=== PATIENT | female | born 1960 | race Caucasian/White ===

== ENCOUNTER 2021-11-22 07:05 | Day surgery (SDC) | payer OTHER ==
[~2021-11-22] VITALS: Ht 1823.7 cm; Wt 81.8 kg
[~2021-11-22 07:05] MED LIST: BUSPIRONE HCL10 MG PO; CALCIUM 600 +1 EACH PO; CYCLOBENZAPRINE5 MG PO; GINKGO BILOBA60 M1 PO; GLUCOSAMINE &1 EAC1 PO; MACRODANTIN50 MG PO; MULTIVITAMINS1 EAC7 PO; OMEGA 3 1,0001 EACH PO; OMEPRAZOLE40 MG PO; PLAQUENIL200 MG PO; RITALIN10 MG PO; SERTRALINE HCL50 MG PO; TRIMETHOPRIM100 MG PO; TYLENOL WITH C1 EAC1 PO; VITAMIN B COMP1 EACH PO; VITAMIN B-12100 MCG PO; VITAMIN B-6100 MG PO; VITAMIN C500 M1 PO; VITAMIN E1000 UNI1 PO; ZINC50 MG PO; ZOFRAN8 MG PO
[2021-11-22] MEDS ORDERED: OMEPRAZOLE40 MG PO (07:29)
[2021-11-22] MEDS ORDERED: TRIMETHOBENZAM300 MG (07:31)
--- NOTE | 2021-11-22 12:04 | OR ---
[facility] [address] [place], [place] [address] Signed DATE OF OPERATION: 11/22/2021 SURGEON: Nina Torrez MD PREOPERATIVE DIAGNOSES: 1. Systemic lupus erythematosus. 2. Epigastric abdominal pain. 3. Small to moderate sized hiatal hernia. 4. Gastroesophageal reflux disease. 5. History of mild gastroduodenitis. 6. History of mild distal esophagitis. POSTOPERATIVE DIAGNOSES: 1. Mild diffuse gastritis. 2. Small hiatal hernia (3 cm). 3. GE junction at 32 cm. PROCEDURE: EGD with CLOtest and biopsies of the antrum and GE junction. ESTIMATED BLOOD LOSS: None. INDICATIONS: Kim is a 61-year-old female I have known for many years. 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 She has a long history of systemic lupus erythematosus. She has cut out smoking alcohol and her platelet counts have recovered up to 130,000 to 180,000. She said she changed her diet and lost 40 pounds. She is hoping to lose 20 more pounds. She said that really helped the acid reflux. She is having some epigastric abdominal pain. She is also having pain along the costal margins. She has a long history of small to moderate sized hiatal hernia. I helped her with upper endoscopy at the age of 44 back in 2006. Her CLOtest was negative. At that time, she did well with Versed and fentanyl. She came back in 2014 at the age of 52 for both upper and lower endoscopy. Again, she had the moderate-sized hiatal hernia with a negative CLOtest. She had mild gastroduodenitis. She had mild distal esophagitis. There was no Fry's mucosa. More recently, she has been under a lot of stress at that time, but is doing much better now. Again, she had done well with the Versed and fentanyl. In the office, I gave her a pamphlet on upper endoscopy. We had reviewed the nature of the test. There is risk including, but not limited to gas bloating, crampy Electronically Signed By: NNIA TORREZ MD 11/22/21 1204 PATIENT NAME: KIM FARR OPERATIVE REPORT DATE OF : 64 REPORT #: [id number] PHYSICIAN: NNIA TORREZ MD PCP: ISABEL SUNG PAC REPORT IS CONFIDENTIAL AND NOT TO BE RELEASED WITHOUT AUTHORIZATION [facility] [address] [place], [place] [address] Signed abdominal pain, bleeding, perforation requiring surgery, and missed diagnosis. We went ahead and scheduled her with standard Versed and fentanyl. However, she does have a history of generalized anxiety disorder with ADHD requiring methylphenidate. She also has to take cyclobenzaprine as well as some Tylenol with Codeine. Sure enough today she took a large amount of Versed and fentanyl. In the future, she would be much better served with monitored anesthesia care. She had expressed understanding and wished to proceed. PROCEDURE NOTE: Kim was taken into our endoscopy suite and placed in the supine semi-recumbent position. We gave her a total of 10 mg of Versed and 125 mcg of fentanyl to cover the case. A bite block was utilized. Kim was comfortable proceeding while she was slightly awake. The posterior oropharynx was unremarkable. As soon as we got the scope into the proximal esophagus, we gave her two additional mg of Versed and 25 mcg of fentanyl. That allowed us to pass the scope out into the duodenum. The duodenum and pyloric channel were unremarkable. The stomach again just showed some very mild erythematous changes. We went ahead and took a biopsy of the antrum for CLOtest as well as pathologic review. Upon retroflexion of the scope again we can see a small to moderate sized hiatal hernia. Her GE junction is right at about 32 cm. She was awake enough, it was a little difficult to measure precisely. Very minimal disruption to her Z-line. No Fry's mucosa. No distal esophagitis. We went ahead and took a single biopsy along the edge of the Z-line. We also took a biopsy in the midesophagus as well. She told me it is getting more difficult swallowing hot or cold liquids as she is getting older and with her lupus. The proximal esophagus was unremarkable. After this, the gas was suctioned out and gastroscope removed. Kim tolerated the procedure quite well. In the future, however, she would definitely be much better served with monitored anesthesia care and infusion of propofol. RECOMMENDATIONS: I will see Kim back in my office in 7 to 14 days to review her results. In the future, she really should have monitored anesthesia care with propofol. Nina Torrez MD ALB/MODL /[id number] Electronically Signed By: NINA TORREZ MD 11/22/21 1204 PATIENT NAME: KIM FARR OPERATIVE REPORT DATE OF : 64 REPORT #: [id number] PHYSICIAN: NINA TORREZ MD PCP: ISABEL SUNG PAC REPORT IS CONFIDENTIAL AND NOT TO BE RELEASED WITHOUT AUTHORIZATION [facility] [address] [place], [place] [address] Signed cc: HAYDER Marin MD Copies: NINA TORREZ MD ~ Electronically Signed By: NINA TORREZ MD 11/22/21 1204 PATIENT NAME: KIM FARR OPERATIVE REPORT DATE OF : 64 REPORT #: [id number] PHYSICIAN: NINA TORREZ MD PCP: ISABEL SUNG PAC REPORT IS CONFIDENTIAL AND NOT TO BE RELEASED WITHOUT AUTHORIZATION
--- NOTE | 2021-11-27 13:27 | PATH ---
[facility] [address] [place], [place] [address] Signed SPECIMEN(S): A ANTRUM/PYLORUS BIOPSY SPECIMEN(S): B GE JUNCTION SPECIMEN(S): C MIDDLE ESOPHAGEAL BIOPSY SPECIMEN SOURCE: A. ANTRUM/PYLORUS BIOPSY B. GE JUNCTION C. MIDDLE ESOPHAGEAL BIOPSY CLINICAL HISTORY: History of hiatal hernia; mild gastroduodenitis; mild esophagitis. Post: Mild gastritis FINAL PATHOLOGIC DIAGNOSIS: A. Antrum / pylorus biopsy: - Benign gastric-type mucosa with focal slight chronic inflammation. - Negative for evidence of Helicobacter organisms on routine HE stained sections. B. GE junction: - Benign esophageal epithelium, negative for increased epithelial eosinophils. - Negative for glandular mucosa. C. Middle esophageal biopsy: - Benign esophageal epithelium negative for increased epithelial eosinophils. - Negative for glandular mucosa. JVR:[facility]:C2NR MICROSCOPIC EXAMINATION: Histologic sections of all submitted blocks are examined by light microscopy. These findings, together with the gross examination, support the pathologic diagnosis. GROSS DESCRIPTION: Three specimens are received in three containers, labeled "SA." A. The specimen, labeled "SA, per the requisition, antrum/pylorus biopsy," is received in formalin and consists of one blas soft polypoid tissue fragment that measures 0.2 cm in greatest dimension. The specimen is entirely submitted in cassette (A1). B. The specimen, labeled "SA, per the requisition, GE junction," is received in formalin and consists of one blas soft tissue fragment that measures 0.3 cm in greatest dimension. The specimen is entirely submitted in cassette (B1). PATIENT NAME: KIM FARR PATHOLOGY DATE OF : 64 REPORT #: [id number] PHYSICIAN: EVITA MENSAH PCP: ISABEL SUNG PAC REPORT IS CONFIDENTIAL AND NOT TO BE RELEASED WITHOUT AUTHORIZATION [facility] [address] [place], [place] [address] Signed C. The specimen, labeled "SA, per the requisition, middle esophageal biopsy," is received in formalin and consists of one blas soft tissue fragment that measures 0.5 cm in greatest dimension. The specimen is entirely submitted in cassette (C1). CA (under the direct supervision of a pathologist) The Gross Description was prepared using a voice recognition system. The report was reviewed for accuracy; however, sound-alike word errors, addition and/or deletions may occur. If there is any question about this report, please contact Client Services. PERFORMING LABORATORY: The technical component was performed by [facility], [address] [place] [address] (CLIA# [id number]). Professional interpretation was performed by [facility], [address] [place] [id number] (CLIA#: [id number]). Diagnostician: Rodger Rai MD Pathologist Electronically Signed 11/27/2021 Copies: ~ PATIENT NAME: KIM FARR PATHOLOGY DATE OF : 64 REPORT #: [id number] PHYSICIAN: EVITA MENSAH PCP: ISABEL SUNG PAC REPORT IS CONFIDENTIAL AND NOT TO BE RELEASED WITHOUT AUTHORIZATION
== END 2021-11-22 09:53 | disposition home or self-care (01) ==
LOC: DS 07:05 → OPS 09:00 → DS 09:00
PROVIDERS: ATTEND Colon & Rectal Surgery
PROC: 0DB68ZX Excision of Stomach, Via Natural or Artificial Opening Endoscopic, Diagnostic (ICD-10-PCS; 2021-11-22)
PROC: 0DB28ZX Excision of Middle Esophagus, Via Natural or Artificial Opening Endoscopic, Diagnostic (ICD-10-PCS; principal; 2021-11-22 08:15)
DX: K29.50 Unspecified chronic gastritis without bleeding (principal); K21.9 Gastro-esophageal reflux disease without esophagitis; K44.9 Diaphragmatic hernia without obstruction or gangrene; K29.90 Gastroduodenitis, unspecified, without bleeding; M32.9 Systemic lupus erythematosus, unspecified; F41.1 Generalized anxiety disorder; D17.9 Benign lipomatous neoplasm, unspecified
CPT/HCPCS: 36415; 87077; 99153; G0500; J2250; J3010; J7121

== ENCOUNTER 2022-06-09 14:05 | Emergency (ER) | payer BC ==
[~2022-06-09] VITALS: Ht 167.6 cm; Wt 81.7 kg
[~2022-06-09 14:05] MED LIST changes: +TRIMETHOBENZAM300 MG
--- OUTSIDE RECORDS SUMMARY | 2022-06-09 14:08 | XMS ---
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 EBrianne VISIT COUNT (12 MO.) 1 FRANCESCA Crowe TOTAL 1 NOTE: Visits indicate total known visits. ED/UCC VISIT TRACKING (12 MO.) 06/09/2022 14:06 FRANCESCA Carpenter OR TYPE: Emergency COMPLAINT: - COLD SYMPTOMS INPATIENT VISIT TRACKING (12 MO.) No inpatient visits to display in this time frame [email or web address]
[2022-06-09] MEDS ORDERED: FLONASE ALLERG9.9 ML NAS (14:21)
[2022-06-09] MEDS ORDERED: AMOX TR-K CLV1 EAC1 PO (14:21)
== END 2022-06-09 14:38 | disposition home or self-care (01) ==
LOC: ED 14:05
DX: J32.9 Chronic sinusitis, unspecified (principal); Z87.891 Personal history of nicotine dependence; Z79.899 Other long term (current) drug therapy
CPT/HCPCS: 99283